=== PATIENT | female | born 1950 | race Caucasian/White ===

== ENCOUNTER 2017-06-11 10:48 | Emergency (ER) | payer OTHER ==
[2017-06-11 11:05] VITALS: TEMP 97.2; BMI 31.8
--- NOTE | 2017-06-11 11:09 | PDOC ---
History of Present Illness - General Chief Complaint: Pain Stated Complaint: RT SIDE PAIN Time Seen by Provider: 06/11/17 11:08 History Source: Patient Exam Limitations: No Limitations - History of Present Illness Initial Comments: 06/11/17 12:28 CHIEF COMPLAINT: Flank pain HISTORY OF PRESENT ILLNESS: This is a 66-year-old female with a history of bilateral renal cysts (not polycystic kidney disease per her report) and a distant history of kidney stones. She is unable to recall exactly when the stones were or how they were treated. She presents today with 3 days of worsening right flank pain radiating to the right lower quadrant. Pain is constant. It is associated with some nausea. She attributes the symptoms to constipation. She has been constipated for 4 days, despite the use of MiraLAX. She is passing flatus. Vital signs on arrival are unremarkable. PCP: Dr. Blanton SURGICAL HISTORY: Cholecystectomy REVIEW OF SYSTEMS: GENERAL/CONSTITUTIONAL: No fever or chills. No weakness. No weight change. HEAD, EYES, EARS, NOSE AND THROAT: No change in vision. No ear pain or discharge. No sore throat. CARDIOVASCULAR: No chest pain or palpitations. RESPIRATORY: No cough, wheezing, or shortness of breath. GASTROINTESTINAL: Nausea, constipation. GENITOURINARY: Right flank pain. No dysuria, frequency, or change in urination. MUSCULOSKELETAL: No joint or muscle swelling or pain. No neck or back pain. SKIN: No rash or easy bruising. NEUROLOGIC: No headache, vertigo, loss of consciousness, or loss of sensation. PSYCHIATRIC: No depression or anxiety. ENDOCRINE: No increased thirst. No abnormal weight change. HEMATOLOGIC/LYMPHATIC: No anemia, easy bleeding, or history of blood clots. ALLERGIC/IMMUNOLOGIC: No hives or skin allergy. No latex allergy. PHYSICAL EXAM: GENERAL: The patient is awake, alert, and fully oriented, in no acute distress. HEAD: Normal with no signs of trauma. ENT: Pupils equal, round and reactive to light, extraocular movements intact, sclera anicteric, conjunctiva clear. Neck supple. LUNGS: Clear to auscultation bilaterally. Normal excursion. No respiratory distress or use of accessory muscles. CV: RRR, S1/S2, no MRG. Cap refill < 2 sec. ABDOMEN: Soft, non-distended. Right CVA tenderness, RLQ tenderness to deep palpation. No guarding or rebound tenderness. EXTREMITIES: Normal range of motion, no edema. NEUROLOGICAL: Normal speech, normal gait. CN II-XII grossly intact. PSYCH: Normal mood, normal affect. SKIN: Warm, dry, normal turgor, no rashes or lesions noted. Past History - Past Medical History Allergies/Adverse Reactions: Allergies Allergy/AdvReac Type Severity Reaction Status Date / Time No Known Allergies Allergy Verified 06/11/17 10:59 Home Medications: Ambulatory Orders NK [No Known Home Medication] 06/11/17 COPD: No Other medical history: kidney cysts - Surgical History Abdominal Surgery: Yes (hernia) - Suicide/Smoking/Psychosocial Hx Smoking History: Never smoked *Physical Exam - Vital Signs Last Vital Signs Temp Pulse Resp BP Pulse Ox 97.2 F L 67 18 118/63 100 06/11/17 10:56 06/11/17 10:56 06/11/17 10:56 06/11/17 10:56 06/11/17 10:56 ED Treatment Course - LABORATORY CBC & Chemistry Diagram: 06/11/17 12:33 06/11/17 12:33 Medical Decision Making - Medical Decision Making 06/11/17 12:40 A/P: 66 year old female with 3 days of worsening right flank pain radiating to RLQ. Differential includes UTI/pyelonephritis, renal colic, appendicitis, discomfort secondary to constipation. 1. UA/culture 2. Basic labs 3. CTAP without contrast 4. Toradol 30mg IVP for pain 5. Re-assess 06/11/17 13:14 CBC unremarkable UA with 7 WBCs 06/11/17 15:39 Patient re-evaluated and pain is improved. CT reviewed: previously known renal cyst. Few small uterine fibroids. Will treat for UTI/?pyelo, constipation. Patient agrees to follow up with PCP, as well as with petroleum inspector for fibroids; may need pelvic u/s to better characterize. Return precautions reviewed. *DC/Admit/Observation/Transfer Diagnosis at time of Disposition: Flank pain Urinary tract infection Qualifiers: Urinary tract infection type: acute cystitis Hematuria presence: without hematuria Qualified Code(s): N30.00 - Acute cystitis without hematuria - Discharge Dispostion Disposition: HOME Condition at time of disposition: Improved Admit: No - Referrals Referrals: STAFF,NOT ON [Primary Care Provider] - (Dr. Blanton) - Patient Instructions Printed Discharge Instructions: DI for Flank Pain Additional Instructions: -Take antibiotics as prescribed for UTI -Take medications for constipation as prescribed and increase dietary fiber and water intake -Follow up with your primary care doctor this week -Also follow up with your flap lining binder regarding the uterine fibroids seen on your CT scan; you may need an ultrasound to further investigate these -Return here for uncontrolled pain or any other concerning symptoms - Post Discharge Activity
[2017-06-11] MEDS ORDERED: SODIUM CHLORIDE 1,000 ML IV SCH (12:00)
[2017-06-11] MEDS ORDERED: KETOROLAC TROMETHAMINE 30 MG/1 ML VIAL IVPUSH ONE (12:36)
[2017-06-11] MEDS ORDERED: KETOROLAC TROMETHAMINE 30 MG/1 ML VIAL ONE (12:42)
[2017-06-11 12:52] LABS: BASO % 0.8 % (0-2.0); EOS % 1.6 % (0-4.5); HEMATOCRIT 37.8 % (32.4-45.2); HEMOGLOBIN 12.5 GM/dL (10.7-15.3); LYMPH % 33.6 % (8-40); MCH 31.6 pg (25.7-33.7); MEAN CELL VOLUME 95.7 fl (80-96); MEAN PLT VOLUME 8.3 fl (7.5-11.1); MONO % 7.8 % (3.8-10.2); NEUT % 56.2 % (42.8-82.8); PLATELET COUNT 178 K/MM3 (134-434); RBC 3.95 M/mm3 (3.60-5.2); RDW 13.4 % (11.6-15.6); WHITE BLOOD COUNT 5.1 K/mm3 (4.0-10.0)
[2017-06-11 12:55] LABS: URINE APPEARANCE CLEAR; URINE BILIRUBIN NEGATIVE (NEGATIVE); URINE BLOOD NEGATIVE (NEGATIVE); URINE COLOR LTYELLOW; URINE GLUCOSE (UA) NEGATIVE (NEGATIVE); URINE KETONE NEGATIVE (NEGATIVE); URINE NITRITE NEGATIVE (NEGATIVE); URINE PROTEIN NEGATIVE (NEGATIVE); URINE UROBILINOGEN NEGATIVE mg/dL (0.2-1.0)
[2017-06-11 13:05] LABS: URINE LEUK ESTERASE 1+ (NEGATIVE)
[2017-06-11 13:06] LABS: EPI CELLS RARE /HPF (FEW); URINE MUCUS RARE
[2017-06-11 13:17] LABS: ANION GAP 7 (8-16); BLOOD UREA NITROGEN 19 mg/dL (7-18); CALCIUM 8.9 mg/dL (8.5-10.1); CHLORIDE 104 mmol/L (98-107); CO2 28 mmol/L (21-32); CREATININE 0.9 mg/dL (0.55-1.02); GLUCOSE,RANDOM 85 mg/dL (74-106); SODIUM 139 mmol/L (136-145)
[2017-06-11 13:29] LABS: POTASSIUM 5.1 mmol/L (3.5-5.1)
[2017-06-11] MEDS ORDERED: CEFTRIAXONE 1 GM in DEXTROSE 5%-WATER - 50 ML IVPB ONE (15:26)
[2017-06-11] MEDS ORDERED: DOCUSATE SODIUM 100 MG CAPSULE (FP) PO ONE ×2 (15:27→16:09)
[2017-06-11] MEDS ORDERED: SENNOSIDES 8.6MG TABLET (FP) PO ONE (15:27)
[2017-06-11] MEDS ORDERED: MAGNESIUM CITRATE 300 ML BOTTLE PO ONE (15:27)
[2017-06-11] MEDS ORDERED: MAGNESIUM CITRATE 300 ML BOTTLE ONE (16:09)
[2017-06-11] MEDS ORDERED: CEFTRIAXONE 1 GM/50 ML BAG ONE (16:09)
[2017-06-11] MEDS ORDERED: traMADol HCL 50 MG TABLET PO ONE (16:19)
[2017-06-11] MEDS ORDERED: traMADol HCL 50 MG TABLET ONE (16:25)
[2017-06-11 16:46] VITALS: BP 137/65; PULSE 53
== END 2017-06-11 16:50 | disposition home or self-care (01) ==
LOC: JER 10:48
PROC: 3E0337Z Introduction of Electrolytic and Water Balance Substance into Peripheral Vein, Percutaneous Approach (ICD-10-PCS; principal; 2017-06-11)
PROC: 3E03329 Introduction of Other Anti-infective into Peripheral Vein, Percutaneous Approach (ICD-10-PCS; 2017-06-11)
PROC: 3E0333Z Introduction of Anti-inflammatory into Peripheral Vein, Percutaneous Approach (ICD-10-PCS; 2017-06-11)
DX: N30.00 Acute cystitis without hematuria (principal); D25.9 Leiomyoma of uterus, unspecified
CPT/HCPCS: 36415; 74176; 80048; 81003; 81015; 85025; 87086; 96361; 96365; 96375; 99284-25

== ENCOUNTER 2017-06-17 23:29 | Emergency (ER) | payer OTHER ==
[2017-06-18 01:08] VITALS: BP 159/66; PULSE 77; TEMP 97.5; BMI 31.8
[2017-06-18] MEDS ORDERED: KETOROLAC TROMETHAMINE 30 MG/1 ML VIAL IVPUSH ONE (01:10)
[2017-06-18] MEDS ORDERED: SODIUM CHLORIDE 500 ML IV STA (01:11)
[2017-06-18] MEDS ORDERED: KETOROLAC TROMETHAMINE 30 MG/1 ML VIAL ONE (01:21)
--- NOTE | 2017-06-18 01:50 | PDOC ---
History of Present Illness <Philly Saravia - Last Filed: 06/18/17 05:26> - General History Source: Patient Exam Limitations: No Limitations - History of Present Illness Initial Comments: 06/18/17 01:39 66yo Female patient w/ PmHx: Bilateral Renal Cyst and renal colic presents to ED c/o worsening lower back pain. Patient states she was seen here 1 week ago for similar symptoms (06-10-2017) and diagnosed with UTI. Patient reports the pain never improved and she wanted to wait until her abx was completed before returning to the ED. Patient states current symptoms worsened after bending over in the shower to pick something up. She states pain is located in right lower back radiating down through buttocks. She denies n/v/d, CP, Abd pain, diff breathing, cough, congestion, rash, fall, trauma, or any urinary/rectal issues at this time. Patient states she took Aleve prior to arrival and symptoms got better. No other complaints or concerns reported. Occurred: reports: just prior to arrival. denies: this morning, this afternoon , this evening, yesterday, last week, other Severity: reports: moderate. denies: mild, severe Pain Location: reports: back. denies: none, abdomen, chest, face, head, lower extremity, mouth, neck, other, pelvis, upper extremity Method of Injury: No: unknown, assault, direct blow, fall, motor vehicle crash, other Modifying Factors: improves with: pain medication. worse with: None, cold therapy, immobilization, rest, other <Manisha Patel - Last Filed: 06/18/17 05:37> - General Chief Complaint: Pain, Acute Stated Complaint: PAIN Time Seen by Provider: 06/18/17 00:59 Past History <Philly Saravia - Last Filed: 06/18/17 05:26> - Travel Traveled outside of the country in the last 30 days: No Close contact w/someone who was outside of country & ill: No - Past Medical History COPD: No - Surgical History Abdominal Surgery: Yes (hernia) - Suicide/Smoking/Psychosocial Hx Smoking History: Never smoked Have you smoked in the past 12 months: No Information on smoking cessation initiated: No Hx Alcohol Use: No Drug/Substance Use Hx: No <Manisha Patel - Last Filed: 06/18/17 05:37> - Past Medical History Allergies/Adverse Reactions: Allergies Allergy/AdvReac Type Severity Reaction Status Date / Time No Known Allergies Allergy Verified 06/18/17 01:08 Home Medications: Ambulatory Orders Cephalexin [Keflex] 500 mg PO BID #14 capsule 06/11/17 Docusate Sodium [Colace] 100 mg PO TID PRN #30 capsule 06/11/17 Sennosides [Senna] 2 tab PO HS PRN #30 tablet 06/11/17 Ibuprofen [Motrin -] 600 mg PO Q8H PRN #21 tablet 06/18/17 Tramadol HCl 50 mg PO Q6H PRN #16 tablet MDD 4 tabs 06/18/17 Trauma Specific PMHX - Complaint Specific PMHX Arthritis: No Back Injury: No Neck Injury: No Hx Sacro Iliac Joint Dysfunction: No <Manisha Patel - Last Filed: 06/18/17 05:37> Review of Systems - Review of Systems Able to Perform ROS?: Yes Is the patient limited [place] proficient: No Respiratory: No: Symptoms reported, See HPI, Cough, Orthopnea, Shortness of Breath, SOB with Exertion, SOB at Rest, Stridor, Wheezing, Productive cough, Hemoptysis, Other Cardiac (ROS): No: Symptoms Reported, See HPI, Chest Pain, Edema, Irregular Heart Rate, Lightheadedness, Palpitations, Syncope, Chest Tightness, Other Musculoskeletal: Yes: Back Pain. No: Symptoms Reported, See HPI, Gout, Joint Pain, Joint Swelling, Muscle Pain, Muscle Weakness, Neck Pain, Joint Stiffness, Other All Other Systems: Reviewed and Negative <Manisha Patel - Last Filed: 06/18/17 05:37> *Physical Exam - Vital Signs Last Vital Signs Temp Pulse Resp BP Pulse Ox 97.5 F L 77 18 159/66 100 06/18/17 01:06 06/18/17 01:06 06/18/17 01:06 06/18/17 01:06 06/18/17 01:06 <Philly Saravia - Last Filed: 06/18/17 05:26> - Vital Signs Last Vital Signs Temp Pulse Resp BP Pulse Ox 97.5 F L 77 18 159/66 100 06/18/17 01:06 06/18/17 01:06 06/18/17 01:06 06/18/17 01:06 06/18/17 01:06 - Physical Exam General Appearance: Yes: Nourished, Appropriately Dressed, Moderate Distress. No: Apparent Distress, Mild Distress, Severe Distress Neck: positive: Trachea midline, Supple. negative: Rigid, Stridor, Lymphadenopathy (R), Lymphadenopathy (L) Respiratory/Chest: positive: Lungs Clear, Normal Breath Sounds. negative: Chest Tender, Respiratory Distress, Accessory Muscle Use, Labored Respiration, Rapid RR, Paradoxal Breathing, Crackles, Rales, Rhonchi, Stridor, Wheezing Cardiovascular: positive: Regular Rhythm, Regular Rate Gastrointestinal/Abdominal: positive: Normal Bowel Sounds, Soft. negative: Flat , Pulsatile Mass, Increased Bowel Sounds, Distended, Guarding, Rebound, Tenderness Musculoskeletal: positive: Normal Inspection. negative: CVA Tenderness, Decreased Range of Motion, Vertebral Tenderness Extremity: positive: Normal Capillary Refill, Normal Inspection, Normal Range of Motion. negative: Pedal Edema, Swelling, Calf Tenderness, Erythema, Inflammation Integumentary: positive: Normal Color, Dry, Warm Neurologic: positive: marketing specialist II-XII NML intact, Fully Oriented, Alert, Normal Mood/ Affect, Normal Response, Motor Strength 5/5 <Manisha Patel D - Last Filed: 06/18/17 05:37> ED Treatment Course - LABORATORY CBC & Chemistry Diagram: 06/18/17 04:46 06/18/17 03:23 - ADDITIONAL ORDERS Additional order review: Laboratory Results 06/18/17 06/18/17 03:33 03:23 Sodium 142 Potassium 5.2 H Chloride 108 H Carbon Dioxide 27 Anion Gap 7 L BUN 24 H Creatinine 0.9 Creat Clearance w eGFR > 60 Random Glucose 98 Calcium 8.7 Total Bilirubin 0.3 AST 24 ALT 22 Alkaline Phosphatase 64 Total Protein 7.9 Albumin 3.9 Urine Color Yellow Urine Appearance Clear Urine pH 6.0 Ur Specific [place] 1.020 Urine Protein Negative Urine Glucose (UA) Negative Urine Ketones Trace H Urine Blood Negative Urine Nitrite Negative Urine Bilirubin Negative Urine Urobilinogen Negative Ur Leukocyte Esterase Trace Urine WBC (Auto) 2 Urine RBC (Auto) 1 Ur Epithelial Cells Rare Urine Bacteria Rare Hyaline Casts 4 Urine Mucus Many 06/18/17 06/18/17 04:46 03:23 RBC 3.48 L Cancelled MCV 95.3 Cancelled MCHC 34.1 Cancelled RDW 13.0 Cancelled MPV 8.4 Cancelled Neutrophils % 56.2 Cancelled Lymphocytes % 34.7 Cancelled Monocytes % 7.7 Cancelled Eosinophils % 0.9 Cancelled Basophils % 0.5 Cancelled - Medications Given in the ED: ED Medications Discontinued Medications Generic Name Dose Route Start Last Admin Trade Name Freq PRN Reason Stop Dose Admin Fentanyl 50 mcg 06/18/17 01:55 06/18/17 02:11 Sublimaze Injection - IVPUSH 06/18/17 01:56 50 mcg ONCE ONE Administration Sodium Chloride 500 mls @ 500 mls/hr 06/18/17 01:11 06/18/17 01:28 Normal Saline - IV 06/18/17 02:10 500 mls/hr ASDIR STA Administration Ketorolac Tromethamine 30 mg 06/18/17 01:10 06/18/17 01:27 Toradol Injection - IVPUSH 06/18/17 01:11 30 mg ONCE ONE Administration Sodium Chloride 500 ml 06/18/17 02:11 06/18/17 02:12 Normal Saline - IV 06/18/17 02:12 500 ml NOW ONE Administration <Philly Saravia - Last Filed: 06/18/17 05:26> - LABORATORY CBC & Chemistry Diagram: 06/18/17 04:46 06/18/17 03:23 - Medications Given in the ED: ED Medications Discontinued Medications Generic Name Dose Route Start Last Admin Trade Name Freq PRN Reason Stop Dose Admin Ketorolac Tromethamine 30 mg 06/18/17 01:10 06/18/17 01:27 Toradol Injection - IVPUSH 06/18/17 01:11 30 mg ONCE ONE Administration <Manisha Patel - Last Filed: 06/18/17 05:37> Medical Decision Making - Medical Decision Making 06/18/17 05:27 Patient Name: YOLY CULP THIS IS A PRELIMINARY REPORT FROM [facility] DATE OF SERVICE: 2017-06-18 04:05:33 IMAGES: [id number] EXAM: CT CTA ABDOMEN PELVIS and CT abdomen and pelvis without contrast HISTORY: Rule out dissection COMPARISON: None. FINDINGS: Lung bases are clear. The visualized cardiac chambers are normal size and configuration. Liver has an irregular appearance, possibly due to prior trauma. Gallbladder is collapsed or removed. No biliary duct dilation. Normal pancreas, spleen, adrenal glands and kidneys. The stomach and abdominal small and large bowel are normal. There is no aortic dissection or aneurysm. Normal celiac axis, SMA bilateral renal arteries. There is no significant retroperitoneal lymphadenopathy. The pelvic small and large bowel are normal. The appendix is normal. The uterus and adnexal structures are normal for small fibroids.. Urinary bladder is unremarkable. There is no pelvic free fluid. No discrete pelvic lymphadenopathy is identified. IMPRESSION: No evidence of acute pathology. Small fibroids. Liver irregularity may be due to prior trauma. THIS DOCUMENT HAS BEEN ELECTRONICALLY SIGNED <Philly Saravia - Last Filed: 06/18/17 05:26> *DC/Admit/Observation/Transfer <Philly Saravia - Last Filed: 06/18/17 05:26> - Discharge Dispostion Admit: No <Manisha Patel - Last Filed: 06/18/17 05:37> Diagnosis at time of Disposition: Sciatica Qualifiers: Laterality: right Qualified Code(s): M54.31 - Sciatica, right side - Discharge Dispostion Disposition: HOME Condition at time of disposition: Improved - Prescriptions Prescriptions: Ibuprofen [Motrin -] 600 mg PO Q8H PRN #21 tablet PRN Reason: Mild Pain Tramadol HCl 50 mg PO Q6H PRN #16 tablet MDD 4 tabs PRN Reason: Severe Pain - Referrals Referrals: Prudencio Blanton MD [Primary Care Provider] - - Patient Instructions Printed Discharge Instructions: DI for Back Pain With Sciatica Additional Instructions: Take medications as prescribed. Follow up with your primary care provider regarding treatment options. Do not drive, drink alcohol or operate heavy machinery while taking Tramadol. Return if any concerns or symptoms do not improve or worsen. Print Language: GABONESE
[2017-06-18] MEDS ORDERED: SODIUM CHLORIDE 0.9% 1000 ML INFUS.BAG IV ONE (02:11)
[2017-06-18 03:47] LABS: URINE APPEARANCE CLEAR; URINE BILIRUBIN NEGATIVE (NEGATIVE); URINE BLOOD NEGATIVE (NEGATIVE); URINE COLOR YELLOW; URINE GLUCOSE (UA) NEGATIVE (NEGATIVE); URINE KETONE TRACE (NEGATIVE); URINE LEUK ESTERASE TRACE (NEGATIVE); URINE NITRITE NEGATIVE (NEGATIVE); URINE PROTEIN NEGATIVE (NEGATIVE); URINE UROBILINOGEN NEGATIVE mg/dL (0.2-1.0)
[2017-06-18 03:52] LABS: ALBUMIN 3.9 g/dl (3.4-5.0); ANION GAP 7 (8-16); BILIRUBIN,TOTAL 0.3 mg/dL (0.2-1.0); BLOOD UREA NITROGEN 24 mg/dL (7-18); CALCIUM 8.7 mg/dL (8.5-10.1); CHLORIDE 108 mmol/L (98-107); CO2 27 mmol/L (21-32); CREATININE 0.9 mg/dL (0.55-1.02); GLUCOSE,RANDOM 98 mg/dL (74-106); POTASSIUM 5.2 mmol/L (3.5-5.1); SGOT/AST 24 U/L (15-37); SGPT/ALT 22 U/L (12-78); SODIUM 142 mmol/L (136-145); TOT PROT 7.9 g/dl (6.4-8.2)
[2017-06-18 03:53] LABS: ALK PHOS 64 U/L (45-117)
[2017-06-18 03:54] LABS: EPI CELLS RARE /HPF (FEW); URINE BACTERIA RARE /hpf (NONE SEEN); URINE HYALINE CAST 4 /lpf; URINE MUCUS MANY
[2017-06-18 04:53] LABS: BASO % 0.5 % (0-2.0); EOS % 0.9 % (0-4.5); HEMATOCRIT 33.2 % (32.4-45.2); HEMOGLOBIN 11.3 GM/dL (10.7-15.3); LYMPH % 34.7 % (8-40); MCH 32.5 pg (25.7-33.7); MCHC 34.1 g/dl (32.0-36.0); MEAN CELL VOLUME 95.3 fl (80-96); MEAN PLT VOLUME 8.4 fl (7.5-11.1); MONO % 7.7 % (3.8-10.2); NEUT % 56.2 % (42.8-82.8); PLATELET COUNT 160 K/MM3 (134-434); RBC 3.48 M/mm3 (3.60-5.2); WHITE BLOOD COUNT 5.7 K/mm3 (4.0-10.0)
[2017-06-18] MEDS ORDERED: methylPREDNISolone NA SUCC 125 MG/2 ML VIAL IVPUSH ONE (05:37)
[2017-06-18] MEDS ORDERED: methylPREDNISolone NA SUCC 125 MG/2 ML VIAL ONE (05:43)
--- NOTE | 2017-06-19 11:36 | EKG ---
Test Reason : Blood Pressure : / mmHG Vent. Rate : 062 BPM Atrial Rate : 062 BPM P-R Int : 158 ms QRS Dur : 134 ms QT Int : 432 ms P-R-T Axes : 060 052 025 degrees QTc Int : 438 ms NORMAL SINUS RHYTHM RIGHT BUNDLE BRANCH BLOCK ABNORMAL ECG NO PREVIOUS ECGS AVAILABLE Confirmed by BRYAN FITZGERALD MD ([id number]) on 06/19/2017 11:36:39 AM Referred By: Confirmed By:BRYAN FITZGERALD MD
== END 2017-06-18 06:05 | disposition home or self-care (01) ==
LOC: JER 23:29
PROC: 3E0337Z Introduction of Electrolytic and Water Balance Substance into Peripheral Vein, Percutaneous Approach (ICD-10-PCS; principal; 2017-06-17)
PROC: 3E033NZ Introduction of Analgesics, Hypnotics, Sedatives into Peripheral Vein, Percutaneous Approach (ICD-10-PCS; 2017-06-17)
PROC: 3E0333Z Introduction of Anti-inflammatory into Peripheral Vein, Percutaneous Approach (ICD-10-PCS; 2017-06-17)
PROC: 3E0333Z Introduction of Anti-inflammatory into Peripheral Vein, Percutaneous Approach (ICD-10-PCS; 2017-06-17)
DX: M54.41 Lumbago with sciatica, right side (principal)
CPT/HCPCS: 36415; 74174-TC; 80053; 81003; 81015; 85025; 93005; 93010; 96374; 96375; 99282-25

== ENCOUNTER → 2022-11-03 | Day surgery (SDC) | payer OTHER | END | disposition home or self-care (01) | LOC: FMAMMOTONE 12:32 | PROVIDERS: ATTEND Family Medicine | PROC: 0HBU3ZX Excision of Left Breast, Percutaneous Approach, Diagnostic (ICD-10-PCS; principal; 2022-11-03) | DX: N60.22 Fibroadenosis of left breast (principal); N64.89 Other specified disorders of breast; R92.1 Mammographic calcification found on diagnostic imaging of breast | CPT/HCPCS: 19081; 76098-TC-FY; 88305-TC; 88342-TC ==

== ENCOUNTER 2022-11-22 09:59 | Day surgery (SDC) | payer OTHER ==
[2022-11-16 14:42] VITALS: BMI 31.8
[2022-11-22] MEDS ORDERED: TRANEXAMIC ACID 1000 MG/10 ML VIAL IVPUSH ONE (12:00)
[2022-11-22] MEDS ORDERED: CELECOXIB 200 MG CAPSULE PO ONE (12:00)
[2022-11-22] MEDS ORDERED: CEFAZOLIN 2 GM in DEXTROSE 5%-WATER - 50 ML IVPB ONE (12:00)
[2022-11-22] MEDS ORDERED: MIDAZOLAM HCL 2 MG/2 ML SINGLE DOSE VIAL ONE (12:18)
[2022-11-22] MEDS ORDERED: BUPIVACAINE HCL/PF 0.5% (5MG/ML) 10 ML VIAL ONE (12:18)
[2022-11-22] MEDS ORDERED: BUPIVACAINE LIPOSOME/PF (EXPAREL) 266 MG/20 ML VIAL ONE (12:18)
[2022-11-22] MEDS ORDERED: THROMBIN (BOVINE) 5,000 UNIT VIAL TP ONE (12:19)
[2022-11-22] MEDS ORDERED: ceFAZolin SODIUM 1 GM VIAL ONE ×2 (12:19→13:14)
[2022-11-22] MEDS ORDERED: VANCOMYCIN 1,000 MG VIAL (RESTRICTED TO ID ONLY) ONE (12:19)
[2022-11-22] MEDS ORDERED: DEXAMETHASONE SOD PHOSPHATE 4 MG/1 ML VIAL ONE (13:14)
[2022-11-22] MEDS ORDERED: TRANEXAMIC ACID 1000 MG/10 ML VIAL ONE (13:14)
[2022-11-22] MEDS ORDERED: ONDANSETRON 4 MG/2 ML VIAL ONE (13:14)
[2022-11-22] MEDS ORDERED: ACETAMINOPHEN 500 MG TABLET (FP) PO PRN (14:54)
[2022-11-22] MEDS ORDERED: ONDANSETRON 4 MG/2 ML VIAL IVPUSH PRN (14:54)
[2022-11-22] MEDS ORDERED: LACTATED RINGERS SOLUTION 1,000 ML IV SCH (15:00)
[2022-11-22] MEDS ORDERED: oxyCODONE HCL 5 MG TABLET PO PRN (15:01)
[2022-11-22] MEDS ORDERED: ACETAMINOPHEN 1000 MG/100 ML BAG IVPB ONE (15:01)
[2022-11-22] MEDS ORDERED: KETOROLAC TROMETHAMINE 30 MG/1 ML VIAL IVPUSH SCH (15:15)
[2022-11-22] MEDS ORDERED: ACETAMINOPHEN INJECTION 100 ML IVPB ONE (15:18)
[2022-11-22] MEDS ORDERED: KETOROLAC TROMETHAMINE 30 MG/1 ML VIAL ONE (15:26)
[2022-11-22] MEDS ORDERED: FENTANYL CITRATE/PF 50 MCG/ML VIAL ONE ×3 (15:26→15:59)
[2022-11-22 17:41] VITALS: RESP 18
[2022-11-22] MEDS: oxyCODONE HCL 5 MG TABLET PO PRN ×2 (19:37→22:30)
[2022-11-22] MEDS: ACETAMINOPHEN 500 MG TABLET (FP) PO SCH (19:49)
[2022-11-22] MEDS ORDERED: CEFAZOLIN 2 GM in DEXTROSE 5%-WATER - 50 ML IVPB SCH (22:00)
[2022-11-22] MEDS: SENNOSIDES/DOCUSATE COMBO (SENNA PLUS) TABLET (UD) PO SCH (22:03)
[2022-11-22] MEDS: oxyCODONE HCL 10 MG SUSTAINED ACTING TABLET PO SCH (22:31)
[2022-11-22] MEDS ORDERED: CEFAZOLIN SODIUM 2 GM in DEXTROSE 5%-WATER 100 ML IVPB SCH (22:45)
[2022-11-23] MEDS: oxyCODONE HCL 5 MG TABLET PO PRN (05:29)
[2022-11-23] MEDS: ACETAMINOPHEN 500 MG TABLET (FP) PO SCH ×4 (05:30→15:37)
[2022-11-23] MEDS: KETOROLAC TROMETHAMINE 30 MG/1 ML VIAL IVPUSH SCH (05:55)
[2022-11-23] MEDS ORDERED: ASPIRIN 325 MG TABLET PO SCH (08:00)
[2022-11-23 08:08] LABS: HEMATOCRIT 32.3 % (32.4-45.2); HEMOGLOBIN 10.8 G/dL (10.7-15.3); MCH 32.8 pg (25.7-33.7); MCHC 33.4 g/dl (32.0-36.0); MEAN CELL VOLUME 98.3 fl (80-96); MEAN PLT VOLUME 8.7 fl (7.5-11.1); PLATELET COUNT 169.9 10^3/uL (134-434); RBC 3.29 10^6/uL (3.60-5.2); RDW 13.1 % (11.6-15.6); WHITE BLOOD COUNT 5.5 10^3/uL (4.0-10.8)
[2022-11-23 08:59] VITALS: BP 117/44; PULSE 55; TEMP 98
[2022-11-23] MEDS: oxyCODONE HCL 10 MG SUSTAINED ACTING TABLET PO SCH (09:11)
[2022-11-23] MEDS: SENNOSIDES/DOCUSATE COMBO (SENNA PLUS) TABLET (UD) PO SCH (09:13)
[2022-11-23] MEDS ORDERED: MULTIVITAMINS (DAILY MVI) TABLET (FP) PO SCH (10:00)
[2022-11-23] MEDS ORDERED: LOSARTAN POTASSIUM 50 MG TABLET PO SCH (10:00)
[2022-11-23] MEDS ORDERED: PANTOPRAZOLE 40 MG TABLET PO SCH (10:00)
== END 2022-11-23 16:06 | disposition home health service (06) ==
LOC: FASUSAT 09:59 → FM/S 17:02 → FASUSAT 11-23 16:06
PROVIDERS: ATTEND Orthopaedic Surgery
PROC: 8E0Y0CZ Robotic Assisted Procedure of Lower Extremity, Open Approach (ICD-10-PCS; 2022-11-22)
PROC: 0SRD0JA Replacement of Left Knee Joint with Synthetic Substitute, Uncemented, Open Approach (ICD-10-PCS; principal; 2022-11-22 13:28)
DX: M17.12 Unilateral primary osteoarthritis, left knee (principal)
CPT/HCPCS: 20985; 27447; C1776; S2900; 36415; 73560-TC-LT-FY; 85027; 94760; 97010-GP; 97116-GP; 97162-GP; C1713

== ENCOUNTER 2023-02-21 04:49 | Day surgery (SDC) | payer OTHER ==
[2023-02-20 15:27] VITALS: BMI 35.4
[2023-02-21 10:19] VITALS: TEMP 97.7
[2023-02-21 10:58] VITALS: BP 118/54; PULSE 54; RESP 18
== END 2023-02-21 11:03 | disposition home or self-care (01) ==
LOC: JASU-ENDO 04:49
PROVIDERS: ATTEND Student in an Organized Health Care Education/Training Program
PROC: 0DB78ZX Excision of Stomach, Pylorus, Via Natural or Artificial Opening Endoscopic, Diagnostic (ICD-10-PCS; 2023-02-21)
PROC: 0DB68ZX Excision of Stomach, Via Natural or Artificial Opening Endoscopic, Diagnostic (ICD-10-PCS; principal; 2023-02-21 10:30)
DX: K29.50 Unspecified chronic gastritis without bleeding (principal); I10 Essential (primary) hypertension
CPT/HCPCS: 88305-TC; 88342-TC